=== PATIENT | male | born 1945 | race Two or more races ===

== ENCOUNTER → 2016-02-15 | Outpatient (CLI) | payer OTHER | LOC: BHLMT 09:30 | PROVIDERS: ATTEND Internal Medicine Cardiovascular Disease | DX: Z01.810 Encounter for preprocedural cardiovascular examination (principal); I25.10 Atherosclerotic heart disease of native coronary artery without angina pectoris; I10 Essential (primary) hypertension; E78.5 Hyperlipidemia, unspecified; Z95.5 Presence of coronary angioplasty implant and graft | CPT/HCPCS: 93005-PO ==

== ENCOUNTER → 2016-02-21 | Outpatient (CLI) | payer OTHER | LOC: BHFA 13:00 | PROVIDERS: ATTEND Internal Medicine Interventional Cardiology | DX: I25.10 Atherosclerotic heart disease of native coronary artery without angina pectoris (principal) | CPT/HCPCS: 78452; 93017; A9500; J2785 ==

== ENCOUNTER 2016-03-03 06:45 | Inpatient (IN) | payer OTHER ==
[2016-02-17 10:00] LABS: % IMMATURE GRANULYOCYTES 0.2 % (0.0-1.1); ABSOLUTE IMMATURE GRANULOCYTES 0.01 10^3/uL (0.00-0.10); ADD DIFF? NO; ADD MORPH? NO; ADD SCAN? NO; ATYPICAL LYMPHOCYTE FLAG 10 (0-99); FRAGMENT RBC FLAG 0 (0-99); HEMATOCRIT 43.4 % (40.0-51.0); HEMOGLOBIN 14.8 g/dL (13.7-17.5); LEFT SHIFT FLG 0 (0-99); LIPEMIA HEMOLYSIS FLAG 90 (0-99); MEAN CELL HEMOGLOBIN 31.9 pg (27.9-34.1); MEAN CELL HEMOGLOBIN CONCENTR. 34.1 g/dL (32.4-36.7); MEAN CELL VOLUME 93.5 fL (81.5-99.8); PLATELET CLUMPS FLAG 10 (0-99); PLATELET COUNT 204 10^3/uL (150-400); RED BLOOD CELL COUNT 4.64 10^6/uL (4.40-6.38); RED CELL DISTRIBUTION WIDTH 13.5 % (11.5-15.2)
[2016-02-17 10:32] LABS: CARBON DIOXIDE 27 mEq/l (22-31); CHLORIDE 108 mEq/L (97-110); POTASSIUM 4.6 mEq/L (3.5-5.2); SODIUM 146 mEq/L (134-144)
[2016-02-17 10:33] LABS: ANION GAP 11 mEq/L (8-16); CREATININE 0.9 mg/dL (0.7-1.3); GLOMERULAR FILTRATION RATE > 60; GLUCOSE 89 mg/dL (70-100)
[~2016-03-03 06:45] MED LIST: ACETAMINOPHEN 325 MG TAB PO ONE; CHLORHEXIDINE GLUC HIBICLENS 118 ML BTL TP ONE; DEXAMETHASONE 4 MG/ML VIAL IVP ONE; FAMOTIDINE 20 MG TAB PO ONE; ROPI/epiNEPH/KETOROLAC JOINT COCKTAIL IU ONE; TRANEXAMIC ACID 3,000 MG in NS 50 ML IRR ONE; ceFAZolin 2 GM in D5W 100 ML IV ONE
[2016-03-03] MEDS ORDERED: SKIN ADHESIVE (DERMABOND) 1 EACH TP ONE (06:48)
[2016-03-03] MEDS ORDERED: VANCOMYCIN 1 GM VIAL IV ONE ×2 (06:49)
[2016-03-03] MEDS ORDERED: TRANEXAMIC ACID 3,000 MG/50 ML BAG IRR ONE (06:49)
[2016-03-03] MEDS ORDERED: FAMOTIDINE 20 MG TAB ONE (08:03)
[2016-03-03] MEDS ORDERED: LIDOCAINE 1% 5 ML SDV ONE (08:03)
[2016-03-03] MEDS ORDERED: ACETAMINOPHEN 325 MG TAB ONE (08:03)
[2016-03-03] MEDS ORDERED: DEXAMETHASONE 4 MG/ML VIAL ONE ×2 (08:03→09:13)
[2016-03-03] MEDS ORDERED: CEFAZOLIN 2 GM/DEXTROSE/100 ML BAG IV ONE (08:03)
[2016-03-03] MEDS ORDERED: MIDAZOLAM 2 MG/2 ML VIAL ONE (08:53)
[2016-03-03] MEDS ORDERED: PROPOFOL/EMULSION 500 MG/50 ML BOTTLE IV ONE (09:01)
[2016-03-03] MEDS ORDERED: ONDANSETRON 4 MG/2 ML VIAL ONE (09:14)
[2016-03-03] MEDS ORDERED: ROPIVACAINE HCL 150 MG/30 ML INJ ONE (09:27)
[2016-03-03] MEDS ORDERED: oxyCODONE IR 5 MG TAB PO PRN (10:17)
[2016-03-03] MEDS ORDERED: MAGNESIUM HYDROXIDE 30 ML UDCUP PO PRN (10:17)
[2016-03-03] MEDS ORDERED: PHARMACY PAIN CONSULT 1 EA MISC PRN (10:17)
[2016-03-03] MEDS ORDERED: POLYETHYLENE GLYCOL 3350 17 GM PKT PO PRN (10:17)
[2016-03-03] MEDS ORDERED: PROMETHAZINE HCL 25 MG SUPPR PR PRN (10:17)
[2016-03-03] MEDS ORDERED: TEMAZEPAM 15 MG CAP PO PRN (10:17)
[2016-03-03] MEDS ORDERED: ONDANSETRON DISINTEGRATING 4 MG TAB PO PRN (10:17)
[2016-03-03] MEDS ORDERED: DIPHENOXYLATE/ATROPINE LOMOTIL 1 TAB PO PRN (10:17)
[2016-03-03] MEDS ORDERED: LACTULOSE 20 GM/30 ML UDCUP PO PRN (10:17)
[2016-03-03] MEDS ORDERED: METOCLOPRAMIDE 10 MG/2 ML VIAL IVP PRN (10:17)
[2016-03-03] MEDS ORDERED: CYCLOBENZAPRINE 10 MG TAB PO PRN (10:17)
[2016-03-03] MEDS ORDERED: ONDANSETRON 4 MG/2 ML VIAL IVP PRN (10:17)
[2016-03-03] MEDS ORDERED: PROMETHAZINE HCL 25 MG/ML INJ IVP PRN (10:17)
[2016-03-03] MEDS ORDERED: BISACODYL 10 MG SUPP PR PRN (10:17)
[2016-03-03] MEDS ORDERED: diphenhydrAMINE 25 MG CAP PO PRN (10:17)
--- NOTE | 2016-03-03 10:17 | POSTOPPROG ---
Post Op Note Date of Operation: 03/03/16 Surgeon: Israel Meredith Rn Endoscopy: carolynn meredith Anesthesiologist: dr. rivera Anesthesia: Spinal, Other (Specify) (adductor canal block) Pre-op Diagnosis: left knee OA Post-op Diagnosis: same Indication: left knee pain due to OA that failed conservative measures Procedure: L TKA Findings: severe knee OA Inf/Abcess present in the surg proc area at time of surgery?: No EBL: 50-100
[2016-03-03] MEDS ORDERED: LR 1,000 ML IV SCH (10:30)
--- NOTE | 2016-03-03 11:28 | DX ---
Left Knee, Two Views History: Postop alignment check. Findings: A left knee TKA is present and is in excellent postoperative alignment. There is dense athe rosclerotic change of the thigh and calf. Impression: Excellent postoperative alignment.
[2016-03-03] MEDS: ACETAMINOPHEN 325 MG TAB PO SCH ×2 (12:05→18:12)
[2016-03-03] MEDS ORDERED: NON-FORMULARY NEW DRUG (Omeprazole [Prilosec 20 Mg] 20 MG) PO PRN (13:39)
[2016-03-03] MEDS ORDERED: PANTOPRAZOLE SODIUM 40 MG TAB PO PRN (13:53)
[2016-03-03] MEDS: ceFAZolin 2 GM in D5W 100 ML IV SCH ×2 (15:05→22:09)
[2016-03-03] MEDS ORDERED: ceFAZolin 2 GM/DEXTROSE 100 ML IV SCH (17:00)
[2016-03-03] MEDS ORDERED: METOPROLOL SUCCINATE 25 MG PO SCH (21:00)
[2016-03-03] MEDS: SENNOSIDES/DOCUSATE SODIUM TAB PO SCH (22:08)
[2016-03-03] MEDS: ASPIRIN 325 MG TAB PO SCH (22:09)
[2016-03-03] MEDS: FAMOTIDINE 20 MG TAB PO SCH (22:09)
[2016-03-03] MEDS: CARVEDILOL 6.25 MG TAB PO SCH (22:19)
--- NOTE | 2016-03-04 01:12 | GOP ---
[f rep st] OPERATIVE REPORT Corrected report DATE OF OPERATION: 03/03/2016 SURGEON: Eitan Hinds MD [employer] OPERATOR: Esther Hinds PA-C. ANESTHESIA: Spinal. PREOPERATIVE DIAGNOSIS: Left knee osteoarthritis. POSTOPERATIVE DIAGNOSIS: Left knee osteoarthritis. PROCEDURE PERFORMED: Left total knee arthroplasty. FINDINGS/PATHOLOGY: Severe tricompartmental osteoarthritis. ESTIMATED BLOOD LOSS: 30 cc. INDICATIONS: This is a 70-year-old male with severe and progressive pain and deformity of the left knee unresponsive to conservative care. Risks and benefits of the surgical intervention were explained in detail. DESCRIPTION OF PROCEDURE: The patient was brought to the operative room and placed on the table in the supine position. Spinal anesthesia was induced without difficulty. A pneumatic tourniquet was applied about the left proximal thigh, and the leg was prepped and draped in a sterile fashion. The leg coleman was applied. After exsanguination by elevation the tourniquet was inflated to 250 mm of mercury. Incision was made anterior medial from the tibial tuberosity to a point 2 cm proximal to the superior pole of the patella. Medial parapatellar arthrotomy was carried out from the superior pole of the patella and posteriorly in line with the fibers of the Type II VMO. The medial collateral ligament was elevated and the infrapatellar fat pad was resected. The patella was everted and the articular surface was excised. A 35 mm patellar button was placed. The distal femoral guide hole was drilled and the 6 degree alignment chris was placed. A 10 mm distal femoral cut was made without difficulty. Attention was turned to the tibia and a standard 9 mm cut based on the lateral tibial condyle was performed. The tibial articular surface was excised without difficulty. Attention was turned back to the femur and a size 5 Triathlon femoral cutting block was positioned. Anterior, posterior, and chamfer cuts were made, followed by the intercondylar box cut. The knee was extended and the remnants of the medial and lateral meniscus were excised. The posterior capsule was injected with ropivacaine, epinephrine and Toradol. A size 5 MIS mini-keel tibial tray was positioned. Trial reduction was then carried out. There was excellent range of motion, alignment, and stability using the 13 mm polyethylene. All trials were then removed. The joint was thoroughly irrigated and carefully dried. Two packages of cement and 2 grams of vancomycin were mixed in the vacuum mixer and placed on the fixation surfaces of all surfaces of the components. The components were implanted and all excess cement was thoroughly removed. The permanent 13 mm polyethylene X3 was placed without difficulty. The tourniquet was deflated and all bleeders were coagulated. The wound was thoroughly irrigated and closed using interrupted sutures of 2-0 Vicryl for the joint capsule. The subcu was closed with 3-0 Vicryl and the skin with 4-0 Monocryl. Dermabond and Steri-Strips were applied followed by a compressive dressing. The patient was then moved from the operating room to the recovery room in good condition, having tolerated the procedure well. /[id number]/MODL Guilherme 03/06/16, corrie SCHAEFFER
[2016-03-04] MEDS: ACETAMINOPHEN 325 MG TAB PO SCH ×2 (01:41→06:11)
[2016-03-04 05:14] VITALS: O2SAT 94
[2016-03-04 05:36] LABS: HEMATOCRIT 37.3 % (40.0-51.0); HEMOGLOBIN 12.5 g/dL (13.7-17.5)
[2016-03-04 07:23] VITALS: BP 134/70; PULSE 64; RESP 15; TEMP 97.2
[2016-03-04] MEDS ORDERED: AMLODIPINE BESYLATE 5 MG PO SCH (09:00)
[2016-03-04] MEDS ORDERED: LOSARTAN POTASSIUM 50 MG TAB PO SCH ×2 (09:00)
[2016-03-04] MEDS ORDERED: amLODIPine BESYLATE 5 MG TAB PO SCH ×2 (09:00)
[2016-03-04] MEDS ORDERED: PRAVASTATIN SODIUM 40 MG TAB PO SCH ×2 (09:00)
[2016-03-04] MEDS ORDERED: PANTOPRAZOLE SODIUM 40 MG TAB PO SCH (09:00)
[2016-03-04] MEDS ORDERED: OMEPRAZOLE 20 MG PO SCH (09:00)
[2016-03-04] MEDS ORDERED: NON-FORMULARY NEW DRUG (Lovastatin [Lovastatin] 40 MG) PO SCH (09:00)
--- NOTE | 2016-03-04 10:08 | SOAPPROG ---
SOAP Progress Note Assessment/Plan: Assessment: Kaveh is doing well POD 1 s/p L TKA 1) pain management: doing well on oral pain meds. well controlled. 2) anemia: level expected initially postop, asymptomatic. continue to monitor 3) VTe ppx: aspirin 325mg daily, MELVIN hose and SCDs. 4) D/c planning: patient may be d/c'd to home today. Plan: 03/04/16 10:07 Subjective: Kaveh is doing well today, denies SOB, chest pain and N/V Objective: Vital Signs Temp Pulse Resp BP Pulse Ox 36.2 C 64 15 134/70 H 94 03/04/16 07:22 03/04/16 07:22 03/04/16 07:22 03/04/16 07:22 03/04/16 07:22 Laboratory Results 03/04/16 05:08 02/17/16 09:30 03/03/16 03/04/16 03/05/16 05:59 05:59 05:59 Intake Total 2228 Output Total 1150 Balance 1078 LLE: incision dressing is clean and dry, NVI, +pf/df ICD10 Worksheet Patient Problems: Problems Problem Status Diagnosed Primary localized osteoarthritis of left knee Acute
[2016-03-04] MEDS: CARVEDILOL 6.25 MG TAB PO SCH (10:14)
[2016-03-04] MEDS: ASPIRIN 325 MG TAB PO SCH (10:15)
[2016-03-04] MEDS: SENNOSIDES/DOCUSATE SODIUM TAB PO SCH (10:15)
[2016-03-04] MEDS: FAMOTIDINE 20 MG TAB PO SCH (10:15)
--- NOTE | 2016-03-04 10:52 | GDS ---
[f rep st] DISCHARGE SUMMARY ADMISSION DIAGNOSIS: Left knee osteoarthritis. DISCHARGE DIAGNOSIS: Left knee osteoarthritis. PROCEDURE: Left total knee arthroplasty. VTE PROPHYLAXIS: Aspirin recommended 3 weeks daily BRIEF DESCRIPTION OF HOSPITAL STAY: Patient was admitted for an elective joint arthroplasty. The pa leon tolerated the procedure well and has passed physical therapy. The patient was given appropriat e antibiotic prophylaxis and venous thromboembolism prophylaxis. The patient's pain was well control led on oral pain medication, patient was holding down food, and had urinated. Decision was made to d ischarge the patient. The patient was given post-operative prescriptions pre-operatively. PLAN: To follow up with Dr. Hinds at [facility] in 2 to 3 weeks. /[id number]/MODL
== END 2016-03-04 12:19 | disposition home or self-care (01) | DRG 470 ==
LOC: F3N 06:45
PROVIDERS: ADMIT Orthopaedic Surgery; ATTEND Orthopaedic Surgery
PROC: 0SRD0JZ Replacement of Left Knee Joint with Synthetic Substitute, Open Approach (ICD-10-PCS; principal; 2016-03-03 09:15)
DX: M17.12 Unilateral primary osteoarthritis, left knee (principal); I10 Essential (primary) hypertension; I25.10 Atherosclerotic heart disease of native coronary artery without angina pectoris
CPT/HCPCS: 97116-GP; 97161-GP; 97165-GO; C1713; G8978-GP-CJ; G8979-GP-CI; G8980-GP-CI; G8987-GO-CI; G8988-GO-CI; G8989-GO-CI; J0171; J0690; J1100; J1885; J2250; J2405; J2704; J2795; J3370

== ENCOUNTER 2016-04-26 05:56 | Inpatient (IN) | payer OTHER ==
[2016-04-17 10:07] LABS: % IMMATURE GRANULYOCYTES 0.1 % (0.0-1.1); ABSOLUTE IMMATURE GRANULOCYTES 0.01 10^3/uL (0.00-0.10); ADD DIFF? NO; ADD MORPH? NO; ADD SCAN? NO; ATYPICAL LYMPHOCYTE FLAG 10 (0-99); FRAGMENT RBC FLAG 0 (0-99); HEMATOCRIT 43.8 % (40.0-51.0); HEMOGLOBIN 14.2 g/dL (13.7-17.5); LEFT SHIFT FLG 0 (0-99); LIPEMIA HEMOLYSIS FLAG 80 (0-99); MEAN CELL HEMOGLOBIN 30.9 pg (27.9-34.1); MEAN CELL HEMOGLOBIN CONCENTR. 32.4 g/dL (32.4-36.7); MEAN CELL VOLUME 95.2 fL (81.5-99.8); MEAN PLATELET VOLUME 9.4 fL (8.7-11.7); PLATELET CLUMPS FLAG 0 (0-99); PLATELET COUNT 254 10^3/uL (150-400); RED CELL DISTRIBUTION WIDTH 13.2 % (11.5-15.2)
[2016-04-26] MEDS ORDERED: LR 1,000 ML IV ONE (06:26)
[2016-04-26] MEDS ORDERED: LIDOCAINE 1% 5 ML SDV ID PRN (06:26)
[2016-04-26] MEDS ORDERED: LIDOCAINE 1% 5 ML SDV ONE (06:36)
[2016-04-26] MEDS ORDERED: TRANEXAMIC ACID 3,000 MG/50 ML BAG IRR ONE (06:53)
[2016-04-26] MEDS ORDERED: SKIN ADHESIVE (DERMABOND) 1 EACH TP ONE (06:53)
[2016-04-26] MEDS ORDERED: VANCOMYCIN 1 GM VIAL IV ONE ×2 (06:53)
[2016-04-26] MEDS ORDERED: MIDAZOLAM 2 MG/2 ML VIAL ONE (07:55)
[2016-04-26] MEDS ORDERED: fentaNYL 100 MCG/2 ML INJ ONE (07:57)
[2016-04-26] MEDS ORDERED: PROPOFOL/EMULSION 500 MG/50 ML BOTTLE IV ONE (07:57)
[2016-04-26] MEDS ORDERED: CEFAZOLIN 2 GM/DEXTR 100 ML IV ONE (08:00)
[2016-04-26] MEDS ORDERED: CHLORHEXIDINE GLUC HIBICLENS 118 ML BTL TP ONE (08:00)
[2016-04-26] MEDS ORDERED: ACETAMINOPHEN 325 MG TAB PO ONE (08:00)
[2016-04-26] MEDS ORDERED: FAMOTIDINE 20 MG TAB PO ONE (08:00)
[2016-04-26] MEDS ORDERED: ROPI/epiNEPH/KETOROLAC JOINT COCKTAIL IU ONE (08:00)
[2016-04-26] MEDS ORDERED: DEXAMETHASONE 4 MG/ML VIAL IVP ONE (08:00)
[2016-04-26] MEDS ORDERED: TRANEXAMIC ACID 3,000 MG in NS 50 ML IRR ONE (08:00)
[2016-04-26] MEDS ORDERED: ONDANSETRON 4 MG/2 ML VIAL ONE (08:30)
[2016-04-26] MEDS ORDERED: DEXAMETHASONE 4 MG/ML VIAL ONE ×2 (08:30→09:42)
[2016-04-26] MEDS ORDERED: ONDANSETRON DISINTEGRATING 4 MG TAB PO PRN (08:38)
[2016-04-26] MEDS ORDERED: PHARMACY PAIN CONSULT 1 EA MISC PRN (08:38)
[2016-04-26] MEDS ORDERED: BISACODYL 10 MG SUPP PR PRN (08:38)
[2016-04-26] MEDS ORDERED: POLYETHYLENE GLYCOL 3350 17 GM PKT PO PRN (08:38)
[2016-04-26] MEDS ORDERED: TEMAZEPAM 15 MG CAP PO PRN (08:38)
[2016-04-26] MEDS ORDERED: CYCLOBENZAPRINE 10 MG TAB PO PRN (08:38)
[2016-04-26] MEDS ORDERED: LACTULOSE 20 GM/30 ML UDCUP PO PRN (08:38)
[2016-04-26] MEDS ORDERED: DIPHENOXYLATE/ATROPINE LOMOTIL 1 TAB PO PRN (08:38)
[2016-04-26] MEDS ORDERED: diphenhydrAMINE 25 MG CAP PO PRN (08:38)
[2016-04-26] MEDS ORDERED: oxyCODONE IR 5 MG TAB PO PRN (08:38)
[2016-04-26] MEDS ORDERED: MAGNESIUM HYDROXIDE 30 ML UDCUP PO PRN (08:38)
[2016-04-26] MEDS ORDERED: PROMETHAZINE HCL 25 MG SUPPR PR PRN (08:38)
[2016-04-26] MEDS ORDERED: ONDANSETRON 4 MG/2 ML VIAL IVP PRN (08:38)
[2016-04-26] MEDS ORDERED: METOCLOPRAMIDE 10 MG/2 ML VIAL IVP PRN (08:38)
[2016-04-26] MEDS ORDERED: LR 1,000 ML IV SCH (09:00)
[2016-04-26] MEDS ORDERED: ROPIVACAINE HCL 150 MG/30 ML INJ ONE (09:42)
--- NOTE | 2016-04-26 09:44 | POSTOPPROG ---
Post Op Note Date of Operation: 04/26/16 Surgeon: Israel Meredith [employer] Ther[employer] Installer: carolynn meredith Anesthesiologist: dr. batres Anesthesia: Spinal, Other (Specify) (adductor canal block) Pre-op Diagnosis: R knee OA Post-op Diagnosis: same Indication: right knee pain due to OA that failed conservative measures Procedure: R TKA Findings: severe knee OA Inf/Abcess present in the surg proc area at time of surgery?: No EBL: 50-100
[2016-04-26] MEDS: ACETAMINOPHEN 325 MG TAB PO SCH ×2 (13:00→17:17)
[2016-04-26] MEDS: ceFAZolin 2 GM/DEXTROSE 100 ML IV SCH ×2 (13:02→21:29)
[2016-04-26] MEDS: SENNOSIDES/DOCUSATE SODIUM TAB PO SCH ×2 (13:04→21:29)
[2016-04-26 14:13] VITALS: RESP 16
[2016-04-26] MEDS: CARVEDILOL 6.25 MG TAB PO SCH (17:17)
[2016-04-26] MEDS ORDERED: NON-FORMULARY NEW DRUG (Carvedilol [Coreg] 12.5 MG) PO SCH (18:00)
[2016-04-26] MEDS: ASPIRIN 325 MG TAB PO SCH (21:28)
[2016-04-26] MEDS: FAMOTIDINE 20 MG TAB PO SCH (21:28)
[2016-04-27] MEDS: ACETAMINOPHEN 325 MG TAB PO SCH ×3 (00:04→12:05)
[2016-04-27 04:27] VITALS: TEMP 97.7
[2016-04-27 05:15] LABS: HEMATOCRIT 38.9 % (40.0-51.0); HEMOGLOBIN 12.9 g/dL (13.7-17.5)
[2016-04-27] MEDS: CARVEDILOL 6.25 MG TAB PO SCH (08:14)
[2016-04-27] MEDS: FAMOTIDINE 20 MG TAB PO SCH (08:14)
[2016-04-27] MEDS: ASPIRIN 325 MG TAB PO SCH (08:14)
[2016-04-27] MEDS: SENNOSIDES/DOCUSATE SODIUM TAB PO SCH (08:14)
[2016-04-27] MEDS ORDERED: NON-FORMULARY NEW DRUG (Lovastatin [Lovastatin] 40 MG) PO SCH (09:00)
[2016-04-27] MEDS ORDERED: PANTOPRAZOLE SODIUM 40 MG TAB PO SCH (09:00)
[2016-04-27] MEDS ORDERED: LOSARTAN POTASSIUM 50 MG TAB PO SCH (09:00)
[2016-04-27] MEDS ORDERED: NON-FORMULARY NEW DRUG (Omeprazole [Prilosec 20 Mg] 20 MG) PO SCH (09:00)
[2016-04-27] MEDS ORDERED: PRAVASTATIN SODIUM 40 MG TAB PO SCH (09:00)
[2016-04-27] MEDS ORDERED: amLODIPine BESYLATE 5 MG TAB PO SCH (09:00)
[2016-04-27 11:57] VITALS: BP 121/62; PULSE 69; O2SAT 94
--- NOTE | 2016-04-27 17:45 | GOP ---
[f rep st] OPERATIVE REPORT DATE OF OPERATION: 04/26/2016 SURGEON: Eitan Hinds MD [employer] TOP HELPER: KRISH Adam ANESTHESIA: Spinal. PREOPERATIVE DIAGNOSIS: Right knee osteoarthritis. POSTOPERATIVE DIAGNOSIS: Right knee osteoarthritis. PROCEDURE PERFORMED: Right total knee arthroplasty. FINDINGS/PATHOLOGY: Severe medial and patellofemoral osteoarthritis. ESTIMATED BLOOD LOSS: 30 cc INDICATIONS: This is a 70-year-old male with severe and progressive pain and deformity of the right knee unresponsive to conservative care. Risks and benefits of the surgical intervention were explained in detail. DESCRIPTION OF PROCEDURE: The patient was brought to the operative room and placed on the table in the supine position. Spinal anesthesia was induced without difficulty. A pneumatic tourniquet was applied about the right proximal thigh, and the leg was prepped and draped in a sterile fashion. The leg coleman was applied. After exsanguination by elevation the tourniquet was inflated to 250 mmHg. Incision was made anterior medial from the tibial tuberosity to a point 2 cm proximal to the superior pole of the patella. Medial parapatellar arthrotomy was carried out from the superior pole of the patella and posteriorly in line with the fibers of the Type II VMO. The medial collateral ligament was elevated and the infrapatellar fat pad was resected. The patella was everted and the articular surface was excised. A 38 mm patellar button was placed. The distal femoral guide hole was drilled and the 6- degree alignment chris was placed. An 8 mm distal femoral cut was made without difficulty. Attention was turned to the tibia and a standard 9 mm cut based on the lateral tibial condyle was performed. The tibial articular surface was excised without difficulty. Attention was turned back to the femur and a size 5 Triathlon femoral cutting block was positioned. Anterior, posterior, and chamfer cuts were made, followed by the intercondylar box cut. The knee was extended and the remnants of the medial and lateral meniscus were excised. The posterior capsule was injected with ropivacaine, epinephrine and Toradol. A size 5 MIS mini-keel tibial tray was positioned. Trial reduction was then carried out. There was excellent range of motion, alignment, and stability using the 11 mm polyethylene. All trials were then removed. The joint was thoroughly irrigated and carefully dried. Two packages of cement and 2 grams of vancomycin were mixed in the vacuum mixer and placed on the fixation surfaces of all surfaces of the components. The components were implanted and all excess cement was thoroughly removed. The permanent 11 mm polyethylene X3 was placed without difficulty. The tourniquet was deflated and all bleeders were coagulated. The wound was thoroughly irrigated and closed using interrupted sutures of 2-0 Vicryl for the joint capsule. The subcu was closed with 3-0 Vicryl and the skin with 4-0 Monocryl. Dermabond and Steri-Strips were applied followed by a compressive dressing. The patient was then moved from the operating room to the recovery room in good condition, having tolerated the procedure well. /[id number]/MODL MTDD
--- NOTE | 2016-04-27 17:56 | GDS ---
[f rep st] DISCHARGE SUMMARY ADMISSION DIAGNOSIS: Right knee osteoarthritis DISCHARGE DIAGNOSIS: Right knee osteoarthritis PROCEDURE: Right total knee arthroplasty. VTE PROPHYLAXIS: Aspirin recommended 3 weeks daily. BRIEF DESCRIPTION OF HOSPITAL STAY: Patient was admitted for an elective joint arthroplasty. The p atient tolerated the procedure well and has passed physical therapy. The patient was given appropri ate antibiotic prophylaxis and venous thromboembolism prophylaxis. The patient's pain was well cont rolled on oral pain medication, patient was holding down food, and had urinated. Decision was made to discharge the patient. The patient was given post-operative prescriptions pre-operatively. PLAN: Follow up as scheduled in Dr. Hinds's office in 3 weeks. /[id number]/MODL
--- NOTE | 2016-04-27 22:02 | SOAPPROG ---
SOAP Progress Note Assessment/Plan: Assessment: Kaveh is doing well POD 1 s/p R TKA pain well controlled on oral pain meds anemia: level expected initially postop. asymptomatic VTE ppx: recommend ASA daily.cont MELVIN mora d/c planning: d/c to home pending release from PT Plan: 04/27/16 22:00 Subjective: Kaveh is doing well today, denies SOB, chest pain and n/v. Objective: Vital Signs Temp Pulse Resp BP Pulse Ox 36.5 C 69 16 121/62 H 94 04/27/16 11:56 04/27/16 11:56 04/27/16 11:56 04/27/16 11:56 04/27/16 11:56 Laboratory Results 04/27/16 04:22 04/26/16 04/27/16 04/28/16 05:59 05:59 05:59 Intake Total 2600 Output Total 1560 Balance 1040 RLE: incision dressing is clean and dry, NVI, +pf/df ICD10 Worksheet Patient Problems: Problems Problem Status Onset Primary localized osteoarthritis of right knee Acute
== END 2016-04-27 13:46 | disposition home or self-care (01) | DRG 470 ==
LOC: F3N 05:56
PROVIDERS: ADMIT Orthopaedic Surgery; ATTEND Orthopaedic Surgery
PROC: 0SRC0J9 Replacement of Right Knee Joint with Synthetic Substitute, Cemented, Open Approach (ICD-10-PCS; principal; 2016-04-26 08:04)
DX: M17.11 Unilateral primary osteoarthritis, right knee (principal); I10 Essential (primary) hypertension; M10.9 Gout, unspecified; I25.10 Atherosclerotic heart disease of native coronary artery without angina pectoris; Z95.5 Presence of coronary angioplasty implant and graft
CPT/HCPCS: 97116-GP; 97161-GP; 97165-GO; C1713; G8978-GP-CI; G8979-GP-CI; G8987-GO-CI; G8988-GO-CI; G8989-GO-CI; J0171; J0690; J1100; J1885; J2250; J2405; J2704; J2795; J3010; J3370

== ENCOUNTER → 2017-08-14 | Outpatient (CLI) | payer OTHER | LOC: BHLMT 15:15 | PROVIDERS: ATTEND Internal Medicine Cardiovascular Disease | DX: I25.10 Atherosclerotic heart disease of native coronary artery without angina pectoris (principal); E78.5 Hyperlipidemia, unspecified; Z95.5 Presence of coronary angioplasty implant and graft | CPT/HCPCS: 93005-PO ==